=== PATIENT | female | born 1970 | race Caucasian/White ===

== ENCOUNTER 2019-09-29 13:11 | Emergency (ER) | payer OTHER, SELFPAY ==
--- NOTE | ~2019-09-29 | XR_ITS ---
EXAMINATION: XR knee LT 2V DATE: 09/29/2019 14:58 INDICATION: Left knee injury. TECHNIQUE: 2 views of left knee were obtained. COMPARISON: None. FINDINGS: Bone alignment is normal. No fracture. There is mild tricompartmental osteoarthritis. No kn ee joint effusion. IMPRESSION: 1. Mild left knee osteoarthritis. Reviewed, dictated and finalized at location A.
[2019-09-29 13:33] VITALS: BP 143/97; PULSE 86; RESP 16; TEMP 37.1; O2SAT 99
--- NOTE | 2019-09-29 14:29 | ED.GENADULT ---
HPI - General Adult General Chief complaint: Extremity Injury, Lower Stated complaint: L/knee pain Time Seen by Provider: 09/29/19 14:29 Source: patient and RN notes reviewed Mode of arrival: ambulatory Limitations: no limitations History of Present Illness HPI narrative: 49-year-old female presents with complaints of immobility to apply pressure to left knee and left knee pain after hearing a loud popping noise (approximately @11am) 2 hours ago. Taken 800 ibuprofen prior to incident at approximately 1215 today. History of Arthritis. Lizette says she was walking, went to step upward, and then heard a loud popping sound then pain. Lizette's says her knee pain initially started approximately 2 months ago and she has had cortisone injections and currently taking 1 Hydrocodone daily (been on for 6 days) for pain control. Radiation of pain. No numbness or tingling, or bleeding. No swelling. Exacerbating factor consist of bearing weight. No fever or chills. Denies nausea, vomiting, and abdominal pain. Remains active. Lizette denies being , LMP-hysterectomy 2001. Some parts of this dictation were generated by voice recognition software and may contain typographical and/or grammatical inaccuracies. Related Data Home Medications Medication Instructions Recorded Confirmed Advil PM 09/29/19 escitalopram oxalate mg 09/29/19 hydrocodone-acetaminophen 09/29/19 metformin mg 09/29/19 Allergies Allergy/AdvReac Type Severity Reaction Status Date / Time codeine Allergy Mild Verified 12/25/13 13:47 Review of Systems Review of Systems: Narrative: CONSTITUTIONAL: Denies fever, chills, sweats. EYES: Denies visual changes, redness, discharge. ENT: Denies rhinorrhea, congestion, sore throat, otalgia. CARDIOVASCULAR: Denies chest pain, palpitations, edema. RESPIRATORY: Denies dyspnea, wheezing, cough. GASTROINTESTINAL: Denies abdominal pain, nausea, vomiting, diarrhea. GENITOURINARY: Denies dysuria, hematuria, abnormal discharge SKIN: Denies rash or itching. MUSCULOSKELETAL: Denies acute back pain or myalgia. Complains of Left knee pain, immobility. NEUROLOGIC: Denies numbness or focal weakness. PSYCHIATRIC: Denies anxiety or depression. All other systems reviewed & are unremarkable except as noted in HPI and below. [facility] Past Medical History Medical History (Updated 09/30/19 @ 00:01 by Background Daemon) Anxiety delivery delivered Chronic pain Left knee Diabetes Ganglion cyst Left hand, head removed Pre-bariatric surgery nutrition evaluation Patient is currently being evaluated for bariatric surgery scheduled for 10/13/2019 Thrombosis Left hand Surgical History Surgical History (Updated 09/29/19 @ 14:48 by DIAZ Zaidi) H/O section History of cholecystectomy History of hernia surgery History of hysterectomy History of tonsillectomy Family History Family History (Updated 09/29/19 @ 14:47 by DIAZ Zaidi) Father Diabetes mellitus Hypertension Social History Social History (Updated 09/29/19 @ 14:48 by DIAZ Zaidi) Smoking status: Former smoker Second hand tobacco smoke exposure: No Additional smoking assessment comments: Lizette says she stopped smoking 6 years ago Alcohol intake: never Substance use: never Living arrangements: with family Gender identity (if verbalized by the patient): Female Comments At time of signature, agree with nurse past medical, surgical, social, and family history. There is no relevant family history pertinent to the presenting complaint. Exam Narrative: Exam Narrative: GENERAL: This is a well-nourished, well-developed patient, in no apparent distress. Talks in full sentences and unable to apply weight to LT lower extremity, no dyspnea noted with attempts. HEAD: normocephalic, atraumatic. EYES: PERRL. Sclera clear/white. Vision is grossly intact. CARDIOVASCULAR: Regular rate and rhythm without
== END 2019-09-29 15:26 | disposition home or self-care (01) ==
PROVIDERS: Emergency Provider Nurse Practitioner Family
DX: S83.92XA Sprain of unspecified site of left knee, initial encounter (principal); X58.XXXA Exposure to other specified factors, initial encounter; Y93.01 Activity, walking, marching and hiking; F41.9 Anxiety disorder, unspecified; E11.9 Type 2 diabetes mellitus without complications
CPT/HCPCS: 73560; 99213; G0463

== ENCOUNTER 2020-02-19 14:43 | Emergency (ER) | payer OTHER, SELFPAY ==
[2020-02-19 14:53] VITALS: BP 133/67; PULSE 77; RESP 16; TEMP 36.8; O2SAT 99
--- NOTE | 2020-02-19 15:06 | ED.GENADULT ---
HPI - General Adult General Chief complaint: Urogenital-Female Stated complaint: Posssible bladder infection Time Seen by Provider: 02/19/20 15:06 Source: patient and RN notes reviewed Mode of arrival: ambulatory Limitations: no limitations History of Present Illness HPI narrative: 49-year-old female presents with urinary complaints for the past 2 days. Dysuria consist of burning, frequency, and urgency.? Azos without relief.? History of UTIs, last treated approximately a month ago with Cipro per Lizette. Denies fever or chills. No significant pelvic pain. No vaginal discharge.? No concerns for STDs. Exacerbating factors urinating.? Denies hematuria or vaginal bleeding. Denies being , hysterectomy.? No flank pain. Denies nausea, vomiting, and abdominal pain. Tolerating liquids fairly well (due to Gastric bypass 09/2019).? Remains active. The patient reports she have not been diagnosed with COVID-19. The patient reports she is not waiting for the results of a COVID-19 lab test. The patient reports she do not have fever, chills, weakness, or fatigue. The patient reports she do not have a new or worsening cough or shortness of breath. Denies chest pain. The patient reports she do not have any rhinorrhea, congestion, sore throat, and diarrhea. Recent traveled to [place] 2 weeks ago. Denies concerns for COVID-19 or exposures. At this time, patient is not suspected of having COVID-19. Some parts of this dictation were generated by voice recognition software and may contain typographical and/or grammatical inaccuracies. Related Data Home Medications Medication Instructions Recorded Confirmed escitalopram oxalate 20 mg DAILY 09/29/19 02/19/20 Tylenol Extra Strength 2 tablet Q4-6H PRN 02/19/20 02/19/20 tramadol 50 mg Q4-6H PRN 02/19/20 02/19/20 Allergies Allergy/AdvReac Type Severity Reaction Status Date / Time codeine Allergy Mild Hives Verified 02/19/20 15:08 Review of Systems Review of Systems: Narrative: CONSTITUTIONAL: Denies fever, chills, sweats. EYES: Denies visual changes, redness, discharge. ENT: Denies rhinorrhea, congestion, sore throat, otalgia. CARDIOVASCULAR: Denies chest pain, palpitations, edema. RESPIRATORY: Denies dyspnea, wheezing, cough. GASTROINTESTINAL: Denies abdominal pain, nausea, vomiting, diarrhea. GENITOURINARY: Complains of dysuria (burning, frequency, and urgency). Denies hematuria, abnormal discharge. SKIN: Denies rash or itching. MUSCULOSKELETAL: Denies acute back pain, joint pain, or myalgia. NEUROLOGIC: Denies numbness or focal weakness. PSYCHIATRIC: Denies anxiety or depression. All systems reviewed & are unremarkable except as noted in HPI and below. [facility] Past Medical History Medical History (Updated 02/20/20 @ 00:00 by Donn Hairston) Anxiety delivery delivered Chronic pain Left knee Diabetes Ganglion cyst Left hand, head removed Pre-bariatric surgery nutrition evaluation Patient is currently being evaluated for bariatric surgery scheduled for 10/13/2019 Thrombosis Left hand Surgical History Surgical History (Updated 02/25/20 @ 15:23 by DIAZ Zaidi) Gastric bypass status for obesity H/O section History of cholecystectomy History of hernia surgery History of hysterectomy History of tonsillectomy Family History Family History Father Diabetes mellitus Hypertension Social History Social History Smoking status: Former smoker Second hand tobacco smoke exposure: No Smoking end date: 01/24/14 Additional smoking assessment comments: Lizette says she stopped smoking 6 years ago Alcohol intake: current Alcohol use details: Rarely Substance use: current Substance use type: marijuana Living arrangements: with family Occupation/Education: occupation Gender identity (if verbalized by the patie
== END 2020-02-19 15:25 | disposition home or self-care (01) ==
PROVIDERS: Emergency Provider Nurse Practitioner Family
DX: R30.0 Dysuria (principal); F41.9 Anxiety disorder, unspecified; E11.9 Type 2 diabetes mellitus without complications; Z87.891 Personal history of nicotine dependence; Z87.440 Personal history of urinary (tract) infections; R03.0 Elevated blood-pressure reading, without diagnosis of hypertension
CPT/HCPCS: 81003; 87077; 87086; 87088; 87186; 99213; G0463